=== PATIENT | female | born 1985 | race Caucasian/White ===

== ENCOUNTER → 2018-05-22 | Outpatient (CLI) | payer OTHER ==
--- NOTE | 2018-05-22 10:22 | REP ---
Clinical: Pelvic and perineal pain . Technique: Transabdominal pelvic ultrasound followed by transvaginal examination for better evaluation of the endometrium and adnexa with color Doppler evaluation of the ovaries. Findings: Bladder is unremarkable and measures approximately 8.2 x 6.6 x 4.2 cm . Normal anteverted uterus measures 8.1 x 3.5 x 4.5 cm . The endometrial complex measures 2.9 mm thickness. No discrete uterine or endometrial abnormalities are appreciated. Left ovary is normal in vascularity without evidence for torsion. Left ovary measures 4.4 x 3.1 x 4.4 cm with 3.5 cm simple cyst ; R I = 0.60. Right ovary is not visualized and small amount of free fluid is identified in the right adnexa. Impression: 1. Essentially normal uterus. 2. Right ovary not visualized. Trace free fluid in the right adnexa. 3. 3.5 cm left ovarian cyst likely physiologic and may warrant reevaluation and 4-6 weeks to evaluate for resolution. No evidence for ovarian torsion. Electronically Signed by Luis Alberto Suarez MD 05/22/2018 10:14 A
== END ==
LOC: M RAD 09:32
PROVIDERS: ATTEND Specialist
DX: R10.2 Pelvic and perineal pain (principal); N83.202 Unspecified ovarian cyst, left side

== ENCOUNTER → 2018-12-03 | Outpatient (REF) | payer OTHER ==
[2018-12-05 14:12] LABS: HPV HYBRID CAPTURE II Negative (Negative)
== END ==
LOC: M LAB REF 13:21
PROVIDERS: ATTEND Specialist
DX: Z12.4 Encounter for screening for malignant neoplasm of cervix (principal)

== ENCOUNTER → 2019-01-07 | Outpatient (CLI) | payer OTHER | LOC: M SMT 10:31 | PROVIDERS: ATTEND Specialist | DX: Z13.79 Encounter for other screening for genetic and chromosomal anomalies (principal) ==

== ENCOUNTER → 2019-11-05 | Outpatient (REF) | payer OTHER ==
[2019-11-05 12:02] LABS: FREE T4 0.91 NG/DL (0.76-1.46); THYROID STIMULATING HORMONE 2.89 uIU/ML (0.358-3.740)
[2019-11-05 12:11] LABS: LUTEINIZING HORMONE 8.7 mIU/mL; PROGESTERONE 22.13 NG/ML; PROLACTIN 9.3 NG/ML
[2019-11-05 12:12] LABS: FOLLICLE STIMULATING HORMONE 4.1 mIU/mL
== END ==
LOC: M PLALAB 09:24
PROVIDERS: ATTEND Specialist
DX: N97.9 Female infertility, unspecified (principal)

== ENCOUNTER → 2019-11-25 | Outpatient (CLI) | payer OTHER ==
[~2019-11-25] MED LIST: ISOVUE-370 76% 100ML VIAL As Ordered ONE
--- NOTE | 2020-01-14 09:50 | REP ---
HYSTEROSALPINGOGRAM: HISTORY: Primary infertility. TECHNIQUE: The endometrium is cannulated by the referring straight line edger and contrast was injected. Fluoroscopic guidance was provided and intermittent fluoroscopic spot filming was performed. 6 fluoroscopically obtained spot radiographs are obtained. FINDINGS: The endometrium and uterus are tilted somewhat to the right. There is symmetric opacification of the isthmic and ampullary segments of the fallopian tubes bilaterally and prompt bilateral peritoneal spillage is documented. No filling defect is seen in the endometrium. IMPRESSION: Bilateral tubal patency is documented. Normal hysterosalpingogram. 0.6 minutes of fluoroscopy is utilized. MTDD
--- NOTE | 2020-02-05 10:50 | RO ---
DATE OF OPERATION: 11/25/2019 PREOPERATIVE DIAGNOSIS: Primary fertility. POSTOPERATIVE DIAGNOSIS: Primary fertility. PROCEDURE: Hysterosalpingogram. SURGEON: Dash Kay MD ANESTHESIA: None. FINDINGS: Normal uterine contour. Bilateral fill and spill with normal appearing fallopian tubes. DESCRIPTION OF PROCEDURE: Written consent obtained. The patient was placed in the lithotomy position in the radiology suite. A speculum was placed in the vagina. The cervix was prepped with Betadine. The anterior lip of the cervix was grasped with a tenaculum. An HSG catheter was inserted through the internal os and the balloon was inflated. At that point, Dr. Preston Pascal from radiology entered the room. The fluoroscope was placed over the patients abdomen. Radiopaque dye was instilled through the catheter into the uterus during which time, fluoroscopy was utilized visualize fill and spill of the fallopian tubes. There was quick fill and spill bilaterally. The patient tolerated the procedure well. The speculum and all instruments were removed. KEVIN
== END ==
LOC: M RAD 12:30
PROVIDERS: ATTEND Specialist
DX: N97.9 Female infertility, unspecified (principal)
CPT/HCPCS: 74740; Q9967

== ENCOUNTER → 2021-08-06 | Outpatient (CLI) | payer OTHER | LOC: M WHC 07:47 | PROVIDERS: ATTEND Specialist | DX: Z12.31 Encounter for screening mammogram for malignant neoplasm of breast (principal) ==

== ENCOUNTER → 2021-08-13 | Outpatient (CLI) | payer OTHER ==
[2021-08-13 11:36] LABS: HCG, SERUM QUANTITATIVE < 1.0 MIU/ML
[2021-08-13 11:38] LABS: LUTEINIZING HORMONE 7.8 mIU/mL; PROGESTERONE 0.21 NG/ML
[2021-08-13 11:39] LABS: ESTRADIOL 68.1 PG/ML; FOLLICLE STIMULATING HORMONE 7.4 mIU/mL
== END ==
LOC: M RAD 10:19
PROVIDERS: ATTEND Obstetrics & Gynecology Reproductive Endocrinology
DX: Z31.83 Encounter for assisted reproductive fertility procedure cycle (principal)

== ENCOUNTER → 2021-12-07 | Outpatient (REF) | payer OTHER | LOC: M PLALAB 09:46 | PROVIDERS: ATTEND Specialist | DX: Z34.01 Encounter for supervision of normal first pregnancy, first trimester (principal); Z3A.00 Weeks of gestation of pregnancy not specified; Z53.9 Procedure and treatment not carried out, unspecified reason ==

== ENCOUNTER → 2021-12-30 | Outpatient (REF) | payer OTHER | LOC: M PLALAB 16:18 | PROVIDERS: ATTEND Specialist | DX: Z34.02 Encounter for supervision of normal first pregnancy, second trimester (principal); Z3A.00 Weeks of gestation of pregnancy not specified ==

== ENCOUNTER → 2022-01-20 | Outpatient (CLI) | payer OTHER | LOC: M WHC 14:27 | PROVIDERS: ATTEND Specialist | DX: Z34.02 Encounter for supervision of normal first pregnancy, second trimester (principal); Z3A.19 19 weeks gestation of pregnancy ==

== ENCOUNTER → 2022-02-18 | Outpatient (CLI) | payer OTHER | LOC: M WHC 10:07 | PROVIDERS: ATTEND Obstetrics & Gynecology | DX: O09.522 Supervision of elderly multigravida, second trimester (principal); Z3A.24 24 weeks gestation of pregnancy ==

== ENCOUNTER → 2022-03-14 | Outpatient (CLI) | payer OTHER | LOC: M PLALAB 08:43 | PROVIDERS: ATTEND Obstetrics & Gynecology | DX: O09.522 Supervision of elderly multigravida, second trimester (principal); Z3A.00 Weeks of gestation of pregnancy not specified ==

== ENCOUNTER → 2022-04-08 | Outpatient (CLI) | payer OTHER ==
[2022-04-08 17:57] LABS: HEMATOCRIT 34.9 % (36.0-47.0); HEMOGLOBIN 11.7 g/dl (12.0-15.5); MEAN CORPUSCULAR HEMOGLOBIN 31.5 pg (27.0-33.0); MEAN CORPUSCULAR HGB CONC 33.5 g/dl (32.0-36.5); MEAN CORPUSCULAR VOLUME 94.1 fl (80.0-96.0); PLATELET COUNT, AUTOMATED 219 10^3/uL (150-450); RED BLOOD COUNT 3.71 10^6/uL (4.00-5.40); WHITE BLOOD COUNT 10.5 10^3/uL (4.0-10.0)
[2022-04-08 18:24] LABS: THYROID STIMULATING HORMONE 0.922 uIU/ML (0.55-4.78)
[2022-04-08 18:26] LABS: FREE T4 1.02 NG/DL (0.89-1.76)
[2022-04-08 19:54] LABS: GC DNA AMPLIFICATION NEGATIVE (NEGATIVE)
== END ==
LOC: M PLALAB 15:50
PROVIDERS: ATTEND Obstetrics & Gynecology
DX: O09.522 Supervision of elderly multigravida, second trimester (principal); Z3A.00 Weeks of gestation of pregnancy not specified

== ENCOUNTER → 2022-04-22 | Outpatient (CLI) | payer OTHER | LOC: M RAD 14:59 | PROVIDERS: ATTEND Obstetrics & Gynecology | DX: O44.43 Low lying placenta NOS or without hemorrhage, third trimester (principal) ==

== ENCOUNTER → 2022-04-22 | Outpatient (CLI) | payer OTHER | LOC: M WHC 10:40 | PROVIDERS: ATTEND Obstetrics & Gynecology | DX: O46.90 Antepartum hemorrhage, unspecified, unspecified trimester (principal) ==

== ENCOUNTER → 2022-05-20 | Outpatient (REF) | payer OTHER | LOC: M SFHCWAGY 13:24 | PROVIDERS: ATTEND Obstetrics & Gynecology | DX: Z34.93 Encounter for supervision of normal pregnancy, unspecified, third trimester (principal) ==

== ENCOUNTER → 2022-05-27 | Outpatient (CLI) | payer OTHER | LOC: M WHC 09:44 | PROVIDERS: ATTEND Advanced Practice Midwife | DX: O26.849 Uterine size-date discrepancy, unspecified trimester (principal); Z3A.37 37 weeks gestation of pregnancy ==

== ENCOUNTER 2022-06-07 11:54 | Inpatient (IN) | payer OTHER ==
[~2022-06-07] VITALS: Ht 162.6 cm; Wt 86.5 kg
[2022-06-07] VITALS (14 sets, daily range): BP systolic 126–177; BP diastolic 67–98
[2022-06-07] MEDS ORDERED: LIDOCAINE 1% MDV 20ML VIAL INFIL PRN (12:30)
[2022-06-07] MEDS ORDERED: OXYTOCIN DRIP 30 UNITS in IV 1 EA IV PRN (12:30)
[2022-06-07] MEDS ORDERED: PRENTAB9 PO (12:39)
[2022-06-07] MEDS ORDERED: SYNT75TA PO (12:39)
[2022-06-07] MEDS ORDERED: ZOLO25TA PO (12:39)
[2022-06-07] MEDS ORDERED: METH1CAP17 PO (12:54)
[2022-06-07] MEDS ORDERED: HOME MED LIST COMPLETE! XX SCH (13:10)
[2022-06-07 13:46] LABS: HEMOGLOBIN 10.9 g/dl (12.0-15.5); MEAN CORPUSCULAR HGB CONC 34.1 g/dl (32.0-36.5); MEAN CORPUSCULAR VOLUME 88.2 fl (80.0-96.0); PLATELET COUNT, AUTOMATED 164 10^3/uL (150-450); RED BLOOD COUNT 3.63 10^6/uL (4.00-5.40); WHITE BLOOD COUNT 8.1 10^3/uL (4.0-10.0)
[2022-06-07] MEDS: miSOPROStol 50MCG 1/2 TABLET SL SCH ×3 (13:52→22:00)
[2022-06-07 14:09] LABS: LDH LACTATE DEHYDROGENASE 242 U/L (120-246)
[2022-06-07 14:10] LABS: ALT/SGPT 13 U/L (7.0-40); AST/SGOT 12 U/L (<34); BILIRUBIN,TOTAL 0.3 MG/DL (0.3-1.2); CREATININE FOR GFR 0.65 MG/DL (0.55-1.30); GLOMERULAR FILTRATION RATE > 60.0 (>60)
[2022-06-07 14:32] LABS: URIC ACID 5.2 MG/DL (3.1-7.8)
[2022-06-07 15:48] LABS: TOTAL PROTEIN,RANDOM URINE 12.8 MG/DL (0.0-14.0)
[2022-06-07 15:53] LABS: CREATININE,RANDOM URINE 51.4 MG/DL
[2022-06-08] VITALS (28 sets, daily range): BP systolic 117–172; BP diastolic 65–94
[2022-06-08] MEDS: miSOPROStol 50MCG 1/2 TABLET SL SCH ×3 (01:30→13:15)
[2022-06-08] MEDS: PRENATAL VITAMINS CHEWABLE TABLET PO SCH (08:47)
[2022-06-08] MEDS: LEVOTHYROXINE 75MCG TABLET (0.075MG) PO SCH (08:48)
[2022-06-08] MEDS: FOLIC ACID 1MG TAB PO SCH (08:48)
[2022-06-08] MEDS ORDERED: SERTRALINE HCL 25 MG TABLET PO SCH (09:00)
[2022-06-08] MEDS ORDERED: SERT-141 PO (09:39)
[2022-06-08] MEDS ORDERED: OXYTOCIN DRIP 30 UNITS in IV 1 EA IV SCH (17:40)
[2022-06-08] MEDS: LR 1,000 ML IV SCH (18:09)
[2022-06-09] VITALS (63 sets, daily range): BP systolic 114–166; BP diastolic 58–99
[2022-06-09] MEDS: LR 1,000 ML IV SCH ×5 (02:07→23:40)
[2022-06-09] MEDS ORDERED: BUTORPHANOL 2 MG/ML 1ML VIAL IV ONE (04:55)
[2022-06-09] MEDS ORDERED: PROMETHAZINE 25MG/ML 1ML VIAL IV ONE (04:55)
[2022-06-09] MEDS: LEVOTHYROXINE 75MCG TABLET (0.075MG) PO SCH (05:54)
[2022-06-09] MEDS: PRENATAL VITAMINS CHEWABLE TABLET PO SCH (08:11)
[2022-06-09] MEDS: FOLIC ACID 1MG TAB PO SCH (08:12)
[2022-06-09] MEDS: SERTRALINE HCL 50 MG TAB PO SCH (08:13)
[2022-06-09] MEDS ORDERED: NALOXONE INJ 0.4MG/1ML VIAL IV PRN (13:40)
[2022-06-09] MEDS ORDERED: diphenhydrAMINE 50MG/ML VIAL IV PRN (13:40)
[2022-06-09] MEDS ORDERED: LR 500 ML IV PRN (13:40)
[2022-06-09] MEDS ORDERED: ePHEDrine SULFATE 25 MG/5 ML(5MG/ML) SYRINGE IVP PRN (13:40)
[2022-06-09] MEDS ORDERED: EPIDURAL/PCA KEYS XX PRN (13:40)
[2022-06-09] MEDS ORDERED: ONDANSETRON 4MG 2ML VIAL IV PRN ×2 (13:40→21:15)
[2022-06-09] MEDS: FENTANYL/ROPIVACAINE/NACL BAG 100 ML EPIDURAL SCH (14:37)
[2022-06-09] MEDS ORDERED: ceFAZolin SOD 2 GM in IV 1 EA IV ONE (19:30)
[2022-06-09] MEDS ORDERED: CARBOPROST TROMETHAMINE 250 MCG/ML AMP IM PRN (19:30)
[2022-06-09] MEDS ORDERED: METHYLERGONOVINE MALEATE 0.2MG/ML 1ML VIAL IM PRN (19:30)
[2022-06-09] MEDS ORDERED: TRANEXAMIC ACID INJection 1,000 MG in NS 100 ML IV PRN (19:30)
[2022-06-09] MEDS ORDERED: BICITRA 30ML SOLN UDC PO ONE (19:30)
[2022-06-09] MEDS ORDERED: ONDANSETRON 4MG 2ML VIAL As Ordered ONE (19:49)
[2022-06-09] MEDS ORDERED: OXYTOCIN INJ 10UNITS/ML 1ML VIAL As Ordered ONE (19:49)
[2022-06-09] MEDS ORDERED: MORPHINE PRES-FREE INJ 10 MG/10 ML VIAL As Ordered ONE (19:49)
[2022-06-09] MEDS ORDERED: KETOROLAC 60MG 2ML VIAL As Ordered ONE (19:49)
[2022-06-09] MEDS ORDERED: LIDOCAINE 2% W/EPINEPHRINE 20ML VIAL **PRES FREE As Ordered ONE (19:50)
[2022-06-09 20:30] LABS: CORD GAS ABE V -4.3; CORD GAS HCO3 V 20.8 MEQ/L; CORD GAS O2 SAT V 85.3 %; CORD GAS PCO2 V 38.4 mmHg; CORD GAS PH V 7.351 UNITS; CORD GAS PO2 V 40.1 mmHg; CORD GAS SBC V 20.7 MEQ/L
[2022-06-09 20:32] LABS: CORD GAS ABE A -4.1; CORD GAS HCO3 A 24.2 MEQ/L; CORD GAS O2 SAT A 44.5 %; CORD GAS PCO2 A 57.5 mmHg; CORD GAS PH A 7.242 UNITS; CORD GAS PO2 A 21.8 mmHg; CORD GAS SBC A 19.8 MEQ/L
[2022-06-09] MEDS ORDERED: RHOGAM 300MCG (1500IU) INJ IM SCH (21:15)
[2022-06-09] MEDS ORDERED: OXYTOCIN DRIP 30 UNITS in IV 1 EA IV SCH (21:15)
[2022-06-09] MEDS ORDERED: MOM 30ML SUSPENSION UDC PO PRN (21:15)
[2022-06-09] MEDS ORDERED: SIMETHICONE 80MG CHEW TAB PO PRN (21:15)
[2022-06-09] MEDS ORDERED: OXYTOCIN 30UNITS IN 0.9% NaCl 500ML IV BAG As Ordered ONE (21:30)
[2022-06-09] MEDS ORDERED: COLA100C5 PO (21:34)
[2022-06-09] MEDS ORDERED: PERCOCET PO (21:34)
[2022-06-09] MEDS ORDERED: IBUP80TA PO (21:34)
[2022-06-09] MEDS ORDERED: LOPERAMIDE 2 MG CAPLET PO PRN (21:35)
[2022-06-10] VITALS (9 sets, daily range): BP systolic 125–162; BP diastolic 63–97
[2022-06-10] MEDS: PERCOCET 5MG/325MG TAB PO PRN ×2 (00:55→19:47)
[2022-06-10] MEDS: FENTANYL/ROPIVACAINE/NACL BAG 100 ML EPIDURAL SCH (01:27)
[2022-06-10] MEDS: KETOROLAC 30 MG/ML 1ML VIAL IV SCH ×3 (01:47→13:42)
[2022-06-10] MEDS: LR 1,000 ML IV SCH ×2 (01:55→13:42)
[2022-06-10] MEDS: LEVOTHYROXINE 75MCG TABLET (0.075MG) PO SCH (06:06)
[2022-06-10 06:38] LABS: HEMATOCRIT 24.4 % (36.0-47.0); MEAN CORPUSCULAR HEMOGLOBIN 29.6 pg (27.0-33.0); MEAN CORPUSCULAR HGB CONC 32.8 g/dl (32.0-36.5); MEAN CORPUSCULAR VOLUME 90.4 fl (80.0-96.0); PLATELET COUNT, AUTOMATED 135 10^3/uL (150-450); WHITE BLOOD COUNT 10.5 10^3/uL (4.0-10.0)
[2022-06-10] MEDS: DOCUSATE SODIUM 100MG CAPSULE PO SCH ×2 (08:00→19:46)
[2022-06-10] MEDS: PRENATAL VITAMINS CHEWABLE TABLET PO SCH (08:00)
[2022-06-10] MEDS: SERTRALINE HCL 50 MG TAB PO SCH (08:00)
[2022-06-10] MEDS: FOLIC ACID 1MG TAB PO SCH (08:00)
[2022-06-10] MEDS ORDERED: LACTATED RINGER'S 1000 ML IV ONE (09:50)
[2022-06-10] MEDS: IBUPROFEN 800 MG TAB PO SCH (22:05)
[2022-06-11 02:00] VITALS: BP 128/67
[2022-06-11 06:00] VITALS: BP 126/60
[2022-06-11] MEDS: LEVOTHYROXINE 75MCG TABLET (0.075MG) PO SCH (06:24)
[2022-06-11] MEDS: IBUPROFEN 800 MG TAB PO SCH (06:25)
[2022-06-11] MEDS: PERCOCET 5MG/325MG TAB PO PRN ×3 (06:28→12:14)
[2022-06-11] MEDS: PRENATAL VITAMINS CHEWABLE TABLET PO SCH (08:29)
[2022-06-11] MEDS: DOCUSATE SODIUM 100MG CAPSULE PO SCH (08:29)
[2022-06-11] MEDS: SERTRALINE HCL 50 MG TAB PO SCH (08:29)
[2022-06-11 08:50] VITALS: BP 126/60
[2022-06-11] MEDS ORDERED: MEASLES,MUMPS,RUBELLA VACCINE INJ (MMR-II) SC.IMMUN ONE (09:00)
[2022-06-11 10:00] VITALS: BP 139/74
[2022-06-11] MEDS ORDERED: IBUP-1022 PO (11:10)
[2022-06-11] MEDS ORDERED: ACET-683 PO (11:10)
[2022-06-11] MEDS ORDERED: OXYC-517 PO (11:10)
[2022-06-11] MEDS ORDERED: NORE0.353 PO (11:12)
== END 2022-06-11 13:30 | disposition home or self-care (01) | DRG 788 ==
LOC: M LDI 11:54 → M OBS 06-09 23:26
PROVIDERS: ADMIT Specialist; ATTEND Specialist
PROC: 3E0DXGC Introduction of Other Therapeutic Substance into Mouth and Pharynx, External Approach (ICD-10-PCS; 2022-06-07)
PROC: 3E033VJ Introduction of Other Hormone into Peripheral Vein, Percutaneous Approach (ICD-10-PCS; 2022-06-07)
PROC: 10D00Z1 Extraction of Products of Conception, Low, Open Approach (ICD-10-PCS; principal; 2022-06-09 19:42)
DX: O62.0 Primary inadequate contractions (principal); Z3A.39 39 weeks gestation of pregnancy; E03.9 Hypothyroidism, unspecified; O09.523 Supervision of elderly multigravida, third trimester; O99.284 Endocrine, nutritional and metabolic diseases complicating childbirth; O09.813 Supervision of pregnancy resulting from assisted reproductive technology, third trimester; F41.9 Anxiety disorder, unspecified; F32.A Depression, unspecified; O99.344 Other mental disorders complicating childbirth; Z37.0 Single live birth

== ENCOUNTER → 2022-10-13 | Outpatient (CLI) | payer OTHER ==
[~2022-10-13] MED LIST changes: +ACET-683 PO; +COLA100C5 PO; +IBUP-1022 PO; +IBUP80TA PO; -ISOVUE-370 76% 100ML VIAL As Ordered ONE; +METH1CAP17 PO; +NORE0.353 PO; +OXYC-517 PO; +PERCOCET PO; +PRENTAB9 PO; +SERT-141 PO; +SYNT75TA PO; +ZOLO25TA PO
== END ==
LOC: M WHC 10:45
PROVIDERS: ATTEND Specialist
DX: Z12.31 Encounter for screening mammogram for malignant neoplasm of breast (principal); Z80.3 Family history of malignant neoplasm of breast

== ENCOUNTER → 2022-11-04 | Outpatient (REF) | payer OTHER | LOC: M PLALAB 15:58 | PROVIDERS: ATTEND Obstetrics & Gynecology | DX: Z01.419 Encounter for gynecological examination (general) (routine) without abnormal findings (principal) | CPT/HCPCS: 87624; G0123 ==

== ENCOUNTER → 2023-11-08 | Outpatient (REF) | payer OTHER ==
[2023-11-10 12:27] LABS: HPV APTIMA Not Detected (Not Detected)
== END ==
LOC: M SFHCWAGY 12:53
PROVIDERS: ATTEND Nurse Practitioner Family
DX: Z12.4 Encounter for screening for malignant neoplasm of cervix (principal)

== ENCOUNTER → 2023-11-16 | Outpatient (CLI) | payer OTHER | LOC: M WHC 06:59 | PROVIDERS: ATTEND Nurse Practitioner Family | DX: Z12.31 Encounter for screening mammogram for malignant neoplasm of breast (principal) ==

== ENCOUNTER → 2025-02-27 | Outpatient (REF) | payer OTHER ==
[~2025-02-27] MED LIST changes: -IBUP-1022 PO; +IBUP600T42 PO
[2025-03-01 14:43] LABS: HPV APTIMA Not Detected (Not Detected)
== END ==
LOC: M PLALAB 11:36
PROVIDERS: ATTEND Specialist
DX: Z12.4 Encounter for screening for malignant neoplasm of cervix (principal); R87.610 Atypical squamous cells of undetermined significance on cytologic smear of cervix (ASC-US)
CPT/HCPCS: 87624; G0123

== ENCOUNTER → 2025-02-27 | Outpatient (CLI) | payer OTHER | LOC: M WHC 13:22 | PROVIDERS: ATTEND Specialist | DX: Z12.31 Encounter for screening mammogram for malignant neoplasm of breast (principal); R92.333 Mammographic heterogeneous density, bilateral breasts; Z80.3 Family history of malignant neoplasm of breast ==